=== PATIENT | female | born 1980 | race Caucasian/White ===

== ENCOUNTER 2017-06-28 17:56 | Outpatient (CLI) | END 2017-06-28 22:39 | disposition home or self-care (01) ==

== ENCOUNTER 2017-07-22 17:24 | Outpatient (CLI) | END 2017-07-22 20:38 | disposition home or self-care (01) ==

== ENCOUNTER 2017-07-22 20:52 | Emergency (ER) | END 2017-07-22 22:12 | disposition home or self-care (01) ==

== ENCOUNTER 2017-10-12 08:29 | Inpatient (IN) | END 2017-10-15 14:37 | disposition home or self-care (01) | DRG 775 ==